=== PATIENT | female | born 1970 | race Caucasian/White ===

== ENCOUNTER 2022-08-16 09:07 | Emergency (ER) | payer MEDICAID, OTHER ==
[~2022-08-16] VITALS: Ht 172.7 cm; Wt 50.0 kg
[2022-08-16 09:49] VITALS: BP 149/75
[2022-08-16] MEDS ORDERED: IPRIH INH (11:49)
[2022-08-16] MEDS ORDERED: ALBUAER3 IN (11:49)
== END 2022-08-16 12:02 | disposition home or self-care (01) ==
LOC: ER 09:07
DX: J44.9 Chronic obstructive pulmonary disease, unspecified (principal); Z76.0 Encounter for issue of repeat prescription

== ENCOUNTER 2022-08-24 06:39 | Emergency (ER) | payer MEDICAID ==
[~2022-08-24] VITALS: Ht 172.7 cm; Wt 50.0 kg
[2022-08-24 07:40] VITALS: BP 116/69
[2022-08-24] MEDS ORDERED: IPRATROPIUM BROM 0.5 MG/2.5ML INH SOL NEB ONE (08:45)
[2022-08-24] MEDS ORDERED: cefTRIAXone SOD 1,000 MG VL IM ONE (08:45)
[2022-08-24] MEDS ORDERED: ALBUTEROL SULF 2.5 MG/0.5ML(0.5%) NEB SOLN NEB ONE (08:45)
[2022-08-24] MEDS ORDERED: methylPREDNISolone SOD SUCC 125 MG/2 ML VL IM ONE (08:45)
[2022-08-24] MEDS ORDERED: PROM1SOL4 PO (09:18)
[2022-08-24] MEDS ORDERED: METH4PAK PO (09:18)
[2022-08-24] MEDS ORDERED: LEVO500T31 PO (09:18)
== END 2022-08-24 09:32 | disposition home or self-care (01) ==
LOC: ER 06:39
DX: J18.9 Pneumonia, unspecified organism (principal); J45.909 Unspecified asthma, uncomplicated; J98.4 Other disorders of lung; J44.9 Chronic obstructive pulmonary disease, unspecified; F17.210 Nicotine dependence, cigarettes, uncomplicated; R07.89 Other chest pain
CPT/HCPCS: 71046; 94640; 96372; 99284; J0696; J2930; J7644

== ENCOUNTER 2022-09-28 07:51 | Emergency (ER) | payer MEDICAID ==
[~2022-09-28] VITALS: Ht 172.7 cm; Wt 51.0 kg
[~2022-09-28 07:51] MED LIST: LEVO500T31 PO; METH4PAK PO; PROM1SOL4 PO
[2022-09-28 08:14] VITALS: BP 120/63
[2022-09-28] MEDS ORDERED: AZIT250T8 PO (08:25)
[2022-09-28] MEDS ORDERED: METH4PAK PO (08:25)
[2022-09-28] MEDS ORDERED: ALBU108A5 IN (08:25)
== END 2022-09-28 08:37 | disposition home or self-care (01) ==
LOC: ER 07:53
DX: J03.90 Acute tonsillitis, unspecified (principal); J44.9 Chronic obstructive pulmonary disease, unspecified; F17.210 Nicotine dependence, cigarettes, uncomplicated; Z76.0 Encounter for issue of repeat prescription; Z79.899 Other long term (current) drug therapy; Z79.2 Long term (current) use of antibiotics

== ENCOUNTER 2023-03-24 22:34 | Emergency (ER) | payer MEDICAID ==
[~2023-03-24] VITALS: Ht 172.7 cm; Wt 56.0 kg
[~2023-03-24 22:34] MED LIST changes: +ALBU108A5 IN; +AZIT-81 PO
[2023-03-24 22:42] VITALS: BP 130/78
== END 2023-03-25 05:00 | disposition left against medical advice (07) ==
LOC: ER 22:34
DX: M54.50 Low back pain, unspecified (principal); Z53.21 Procedure and treatment not carried out due to patient leaving prior to being seen by health care provider

== ENCOUNTER 2024-02-08 13:24 | Emergency (ER) | payer MEDICAID ==
[~2024-02-08] VITALS: Ht 154.9 cm; Wt 50.6 kg
[~2024-02-08 13:24] MED LIST changes: +AZIT-185 PO; -AZIT-81 PO
[2024-02-08] MEDS ORDERED: CLIN150C PO (17:02)
[2024-02-08] MEDS: CLINDAMYCIN HCL 150 MG CAP PO ONE (18:08)
[2024-02-08 18:10] VITALS: BP 126/82; PULSE 98; RESP 16; TEMP 98.7; O2SAT 98
== END 2024-02-08 18:12 | disposition home or self-care (01) ==
LOC: ER 13:24
DX: L03.116 Cellulitis of left lower limb (principal); J44.9 Chronic obstructive pulmonary disease, unspecified; F17.210 Nicotine dependence, cigarettes, uncomplicated; Z79.2 Long term (current) use of antibiotics; Z79.899 Other long term (current) drug therapy
CPT/HCPCS: 93971

== ENCOUNTER 2024-04-15 05:16 | Emergency (ER) | payer MEDICAID ==
[~2024-04-15] VITALS: Ht 172.7 cm; Wt 47.3 kg
[~2024-04-15 05:16] MED LIST changes: +CLIN150C PO
[2024-04-15 05:20] VITALS: PULSE 84; RESP 16; TEMP 98.2; O2SAT 93
[2024-04-15 05:27] VITALS: BP 145/70; PULSE 85; RESP 17; O2SAT 94
[2024-04-15] MEDS ORDERED: CIPR-173 PO (05:32)
== END 2024-04-15 06:14 | disposition home or self-care (01) ==
LOC: ER 05:16
DX: S91.312A Laceration without foreign body, left foot, initial encounter (principal); J44.9 Chronic obstructive pulmonary disease, unspecified; F17.210 Nicotine dependence, cigarettes, uncomplicated; F15.10 Other stimulant abuse, uncomplicated; Z79.899 Other long term (current) drug therapy; W25.XXXA Contact with sharp glass, initial encounter; Y93.89 Activity, other specified; Y92.89 Other specified places as the place of occurrence of the external cause; Y99.8 Other external cause status
CPT/HCPCS: 12001

== ENCOUNTER 2024-07-20 04:19 | Emergency (ER) | payer MEDICAID ==
[~2024-07-20] VITALS: Ht 162.6 cm; Wt 54.5 kg
[~2024-07-20 04:19] MED LIST changes: +CIPR-173 PO
[2024-07-20] MEDS: AZITHROMYCIN 250 MG TAB PO ONE (04:44)
[2024-07-20] MEDS: methylPREDNISolone SOD SUCC 125 MG/2 ML VL IV ONE (04:44)
[2024-07-20 04:45] VITALS: PULSE 106; RESP 24; O2SAT 100
[2024-07-20] MEDS: IPRATROPIUM BROM 0.5 MG/2.5ML INH SOL NEB ONE (04:48)
[2024-07-20] MEDS: ALBUTEROL SULF 2.5 MG/0.5ML(0.5%) NEB SOLN NEB ONE (04:48)
[2024-07-20 05:21] LABS: Basophils # (auto) 0 10 ^3/uL (0-0.2); Basophils % (auto) 0.3 % (0.0-2.0); Eosinophils # (auto) 0.3 10 ^3/uL (0-0.8); Eosinophils % (auto) 4.8 % (0.0-7.0); Hematocrit 39.6 % (36.0-46.0); Hemoglobin 13.3 g/dL (12.2-16.2); Lymphocytes # (auto) 1.5 10 ^3/uL (0.4-5.4); Mean Corpuscular Hemoglobin 29.6 pg (28.0-32.0); Mean Corpuscular Hgb Conc. 33.6 g/dL (32.0-36.0); Monocytes # (auto) 0.5 10 ^3/uL (0-1.3); Neutrophils # (auto) 3.6 10 ^3/uL (1.6-8.6); Neutrophils % (auto) 60.9 % (37.0-80.0); Platelet Count (auto) 174 10^3/uL (140-450); Red Cell Distribution Width 13.7 % (11.8-14.3); White Blood Cell 5.9 10^3/uL (4.4-10.8)
[2024-07-20 05:23] LABS: Anion Gap 6 (5-15); Carbon Dioxide 26 mmol/L (20-31); Chloride 110 mmol/L (98-107); Potassium 3.2 mmol/L (3.5-5.1); Sodium 142 mmol/L (136-145)
[2024-07-20 05:29] LABS: BUN/Creatinine Ratio 23.9 (10.0-20.0); Blood Urea Nitrogen 17 mg/dL (9-23); Glucose 105 mg/dL (74-106)
[2024-07-20 07:25] VITALS: BP 133/76; PULSE 84; RESP 14; O2SAT 95
[2024-07-20 08:31] VITALS: PULSE 84
== END 2024-07-20 09:12 | disposition left against medical advice (07) ==
LOC: EDBD 04:19 → ER 04:19
DX: J44.1 Chronic obstructive pulmonary disease with (acute) exacerbation (principal); R53.1 Weakness
CPT/HCPCS: 36415; 71045; 80048; 84484; 85025; 94640; 96374; 99291; J2919

== ENCOUNTER 2024-12-14 08:39 | Emergency (ER) | payer MEDICAID ==
[~2024-12-14] VITALS: Ht 172.7 cm; Wt 50.0 kg
[2024-12-14] MEDS: ONDANSETRON HCL 4 MG/2 ML VIAL IV ONE (09:04)
[2024-12-14] MEDS: SODIUM CHLORIDE 0.9% 1,000 ML IV ONE (09:06)
[2024-12-14 09:13] VITALS: BP 119/74; PULSE 85; RESP 18; TEMP 98.9; O2SAT 98
--- NOTE | 2024-12-14 09:48 | ED.PDOC ---
GI ASSESSMENT Chief Complaint: Nausea/Vomiting Primary Care Provider: FRANCINE Reviewed Notes: Nurses Notes, Medications, Allergies Allergies: Coded Allergies: No Known Drug Allergy (Verified Allergy, Unknown, 08/16/22) Home Meds Active Scripts Ciprofloxacin Hcl (Cipro) 500 Mg Tab, 1 TAB PO BID for 7 Days, #14 TAB Prov:LUPIS FLORES 04/15/24 Clindamycin Hcl (CLEOCIN) 150 Mg Cap, 1 CAP PO TID, #30 CAP Prov:SERVANDO CHACON MD 02/08/24 Albuterol Sulfate (Albuterol Sulfate Hfa) 108 Mcg/Act Aer, 108 MCG IN QID, #90 AER Prov:NAPOLEON RITTER 09/28/22 Methylprednisolone (Medrol Dosepak) 4 Mg Ric, 4 MG PO UD, #21 TAB UAD Prov:NAPOLEON RITTER 09/28/22 Azithromycin (ZITHROMAX TABLET) 250 Mg Tb, 250 MG PO DAILY, #6 TAB Prov:NAPOLEON RITTER 09/28/22 Methylprednisolone (Medrol Dosepak) 4 Mg Ric, 4 MG PO UD, #21 TAB UAD Prov:NAPOLEON RITTER 08/24/22 Promethazine-Dm (Promethazine Dm 6.25-15 mg/5Ml) 1 Zandra Zandra, 5 ML PO TID, #150 ML Prov:NAPOLEON RITTER 08/24/22 Levofloxacin (Levaquin) 500 Mg Tab, 500 MG PO DAILY, #10 TAB Prov:NAPOLEON RITTER 08/24/22 Information Source: Patient Mode of Arrival: Ambulatory Timing: Hours Duration: Since onset Prehospital treatment: None Quality: None Vomitus: Watery Stool: Normal Severity: Moderate Recent: None Recent Hx of: None Pain Location: None Modifying Factors: Nothing Associated sign and symptoms: Nausea, Vomiting Past Medical History PAST MEDICAL HISTORY: Asthma, COPD Surgical History: Denies all surgeries MANAGER MUSIC History: No Pertinent MANAGER MUSIC History Family History Family History: No family hx of Cancer, No family hx of DM, No family hx of HTN, No family hx ofKidney curtis, No family hx of Liver curtis, No family hx of Lung curtis, No family hx of Stroke, Family hx of heart curtis Social History Smoker: Non-Smoker Alcohol: Denies ETOH Use Drugs: Denies Drug Use Lives In: Home EENTM: denies: blurred vision, double vision, ear bleeding, ear discharge, ear drainage, ear pain, ear ringing, eye pain, eye redness, hearing loss, mouth pain, mouth swelling, nasal discharge, nose bleeding, nose congestion, nose pain, photophobia, tearing, throat pain, throat swelling, voice changes, others Respiratory: denies: cough, hemoptysis, orthopnea, SOB at rest, shortness of breath, SOB with excertion, stridor, wheezing, others Cardiovascular: denies: chest pain, dizzy spells, diaphoresis, Dyspnea on exertion, edema, irregular heart beat, left arm pain, lightheadedness, palpitations, PND, syncope, others Gastrointestinal: reports: nausea, vomiting; denies: abdomen distended, abdominal pain, blood streaked bowels, constipated, diarrhea, dysphagia, difficulty swallowing, hematemesis, melena, poor appetite, poor fluid intake, rectal bleeding, rectal pain, others Genitourinary: denies: abnormal vagina bleeding, burning, dyspareunia, dysuria, flank pain, frequency, hematuria, incontinence, pain, , vagina discharge, urgency, others Neurological: denies: dizziness, fainting, headache, left sided numbness, left sided weakness, numbness, paresthesia, pre-existing deficit, right sided numbness, right sided weakness, seizure, speech problems, tingling, tremors, weakness, others Musculoskeletal: denies: back pain, gout, joint pain, joint swelling, muscle pain, muscle stiffness, neck pain, others Integumetry: denies: bruises, change in color, change in hair/nails, dryness, laceration, lesions, lumps, rash, wounds, others Allergic/Immunocompromised: denies: Difficulty Healing, Frequent Infections, Hives, Itching, others Hematologic/Lymphatic: denies: anemia, blood clots, easy bleeding, easy bruising, swollen glands, others Endocrine: denies: excessive hunger, excessive sweating, excessive thirst, excessive urination, flushing, intolerance to cold, intolerance to heat, unexplained weight gain, unexplained weight loss, others Psychiatric: denies: anxiety, bipolar disorder, depression, hopeless, panic disorder, schizophrenia, sleepless, suicidal, others All Other Systems: Reviewed and Negative Physical Exam General Appearance: No Apparent Distress, Normal HEENT: Normal ENT Inspection, PERRL/EOMI Neck: Full Range of Motion, Non-Tender, Normal, Normal Inspection Respiratory: Chest Non-Tender, Lungs Clear, No Accessory Muscle Use, No Respiratory Distress, Normal Breath Sounds Cardiovascular: No Edema, No JVD, No Murmur, No Gallop, Normal Peripheral Pulses, Regular Rate/Rhythm Breast Exam: Deferred Gastrointestinal: No Organomegaly, Non Tender, No Pulsatile Mass, Normal Bowel Sounds, Soft Genitalia: Deferred Pelvic: Deferred Rectal: Deferred Extremities: No calf tenderness, Normal capillary refill, Normal inspection, Normal range of motion, Non-tender, No pedal edema Musculoskeletal : Apperance: Normal Neurologic: Alert, german professor II-XII nml as Tested, No Motor Deficits, Normal Affect, Normal Mood, No Sensory Deficits Cerebellar Function: Normal Reflexes: Normal Skin: Dry, Normal Color, Warm Lymphatic: No Adenopathy Was a procedure done? Was a procedure done?: No GI differential Dx Differential Diagnosis: Gastroenteritis, Dehydration, Electrolyte Imbalance, Food Poisoning, Bacterial, Viral X-Ray, Labs, Meds, VS Vital Signs Date Time Temp Pulse Resp B/P (MAP) Pulse Ox O2 Delivery O2 Flow Rate FiO2 12/14/24 09:13 85 18 98 Room Air* 0 21 12/14/24 09:13 85 18 98 Room Air 12/14/24 09:13 98.9 85 18 119/74 (89) 98 98.9 12/14/24 08:50 98.6 120 16 77/9 (31) 93 98.6 Current Medications Medications (Trade) Dose Ordered Sig/[place] Route Start Time Stop Time Status Last Admin Ondansetron HCl (Zofran) 4 mg ONCE ONCE IV 12/14/24 09:00 12/14/24 09:01 DC 12/14/24 09:04 Sodium Chloride 1,000 ml @ 1,000 mls/hr Q1H ONCE IV 12/14/24 09:00 12/14/24 09:59 DC 12/14/24 09:06 Reevaluation 1ST: Unchanged Patient Education/Counseling: Diagnosis, Treatment Family Education/Counseling: No Family Present Critical Care Note Critical Care Time?: No Stability Stability form required: No Heart Score Heart Score: Heart Score Response (Comments) Value History N/A 0 EKG N/A 0 Age N/A 0 Risk Factors N/A 0 Troponin N/A 0 Total 0 I personally scribed for DAVID REINOSO MD ([email or web address]) on 12/14/24 at 09:48. Electronically submitted by Riley Ochoa ([email or web address]). I personally scribed for DAVID REINOSO MD ([email or web address]) on 12/14/24 at 10:25. Electronically submitted by Riley Ochoa ([email or web address]). I personally scribed for DAVID REINOSO MD ([email or web address]) on 12/14/24 at 10:33. Electronically submitted by Riley Ochoa ([email or web address]). DAVID REINOSO MD Dec 14, 2024 09:48
== END 2024-12-14 10:26 | disposition left against medical advice (07) ==
LOC: ER 08:39
DX: R11.10 Vomiting, unspecified (principal); Z53.21 Procedure and treatment not carried out due to patient leaving prior to being seen by health care provider
CPT/HCPCS: 96361; 96374; J2405; J7030

== ENCOUNTER → 2025-05-08 | Emergency (ER) | payer SELFPAY ==
[~2025-05-08] VITALS: Ht 172.7 cm; Wt 50.0 kg
[2025-05-08 12:49] VITALS: BP 126/77; PULSE 108; RESP 18; TEMP 97.2; O2SAT 95
== END ==
LOC: ER 12:47
DX: S80.861A Insect bite (nonvenomous), right lower leg, initial encounter (principal); Z53.21 Procedure and treatment not carried out due to patient leaving prior to being seen by health care provider; W57.XXXA Bitten or stung by nonvenomous insect and other nonvenomous arthropods, initial encounter; Y93.89 Activity, other specified; Y92.89 Other specified places as the place of occurrence of the external cause; Y99.8 Other external cause status